=== PATIENT | male | born 1975 | race Caucasian/White ===

== ENCOUNTER 2021-07-10 03:16 | Emergency (ER) | payer SELFPAY ==
[~2021-07-10] VITALS: Ht 177.8 cm; Wt 100.0 kg
[2021-07-10 05:56] VITALS: BP 110/65
== END 2021-07-10 06:20 | disposition home or self-care (01) ==
LOC: EMS 03:18
DX: F10.129 Alcohol abuse with intoxication, unspecified (principal); Y90.9 Presence of alcohol in blood, level not specified
CPT/HCPCS: 99283; Z7502